=== PATIENT | female | born 1985 | race Caucasian/White ===

== ENCOUNTER 2016-12-22 15:33 | Emergency (ER) | payer OTHER ==
[~2016-12-22] VITALS: Ht 154.9 cm; Wt 83.9 kg
[2016-12-22] MEDS ORDERED: SODIUM CHLORIDE 0.9% 1,000ML IVBOLUS ONE (16:00)
[2016-12-22] MEDS ORDERED: ONDANSETRON 2MG/ML, 2ML IVPush ONE (16:00)
[2016-12-22 16:49] LABS: BLOOD UREA NITROGEN 9 mg/dL (7-18)
[2016-12-22] MEDS ORDERED: ONDANSETRON 2MG/ML, 2ML ONE (16:55)
[2016-12-22 17:07] LABS: ASPARTATE AMINO TRANSFERASE 19 U/L (15-37)
[2016-12-22 19:43] VITALS: BP 136/71
== END 2016-12-22 20:07 | disposition home or self-care (01) ==
LOC: ED 19:27
DX: K52.29 Other allergic and dietetic gastroenteritis and colitis (principal); N39.0 Urinary tract infection, site not specified
CPT/HCPCS: 36415; 76815; 80053; 81001; 84702; 85025; 87086; 96361; 96374; 99285; J2405; J7030

== ENCOUNTER 2017-02-25 13:58 | Observation (INO) | payer OTHER ==
[~2017-02-25] VITALS: Ht 152.4 cm; Wt 88.6 kg
[2017-02-25 14:10] VITALS: BP 114/55
[2017-02-25 14:42] LABS: PATH.CAST-FLAG NOT PRESENT; SPERM-FLAG NOT PRESENT; SRC-FLAG NOT PRESENT; XTAL-FLAG NOT PRESENT; YLC-FLAG NOT PRESENT
[2017-02-25] MEDS ORDERED: OXYcodone/APAP 5/325MG TABLET ONE (15:44)
[2017-02-25] MEDS ORDERED: OXYcodone/APAP 5/325MG TABLET PO PRN ×2 (16:00→19:30)
[2017-02-25] MEDS ORDERED: KETOROLAC 30 MG/1 ML ONE (18:59)
[2017-02-25] MEDS ORDERED: ZOLPIDEM 10MG TABLET PO PRN (19:00)
[2017-02-25] MEDS ORDERED: KETOROLAC 30 MG/1 ML IM ONE (19:00)
[2017-02-25] MEDS ORDERED: ZOLPIDEM 5MG TABLET ONE (23:24)
[2017-02-25] MEDS ORDERED: ZOLPIDEM 5MG TABLET PO PRN (23:30)
== END 2017-02-26 12:14 | disposition home or self-care (01) ==
LOC: LDOP 13:58 → LDIP 15:42
PROVIDERS: ADMIT Obstetrics & Gynecology; ATTEND Obstetrics & Gynecology
DX: O26.892 Other specified pregnancy related conditions, second trimester (principal); R10.9 Unspecified abdominal pain; Z3A.25 25 weeks gestation of pregnancy
CPT/HCPCS: 59025; 76770; 81001; 87086; 96372; G0378; J1885